=== PATIENT | male | born 1990 | race Caucasian/White ===

== ENCOUNTER 2019-04-24 20:46 | Emergency (ER) | payer OTHER ==
--- NOTE | 2019-04-24 21:35 | PDOC ---
Rapid Medical Evaluation Time Seen by Provider: 04/24/19 21:27 Medical Evaluation: 04/24/19 21:31 pt c/o: cough, wheezing x months, feels as if something is there, seen at [facility] and had cxr done which then he was sent home with prednisone but was not at the pharmacy pt on brief exam: vss, no resp distress pt ordered for: none pt to proceed to proceed to the ED Discharge Disposition - Diagnosis Cough, Eloped from emergency department - Discharge Dispostion Disposition: ELOPED Condition at time of disposition: Unchanged/Unknown - Referrals Referrals: Vanessa Tapia MD [Primary Care Provider] - - Patient Instructions - Post Discharge Activity
[2019-04-24 21:37] VITALS: BP 139/79; PULSE 87; TEMP 98.1; BMI 35.2
== END 2019-04-24 23:00 | disposition left against medical advice (07) ==
LOC: JERFT 20:46
DX: Z53.21 Procedure and treatment not carried out due to patient leaving prior to being seen by health care provider (principal)
CPT/HCPCS: 99281-25

== ENCOUNTER 2019-11-29 10:02 | Day surgery (SDC) | payer OTHER ==
[2019-11-20 12:07] VITALS: BMI 41.5
[2019-11-29] MEDS ORDERED: PROPOFOL 20 ML ONE ×2 (10:36)
[2019-11-29] MEDS ORDERED: LIDOCAINE HCL/PF 2% SDV 5ML VIAL ONE (10:36)
[2019-11-29 12:41] VITALS: TEMP 97.8
[2019-11-29 12:44] VITALS: BP 118/61; PULSE 78
--- NOTE | 2019-11-30 15:03 | PATH ---
Surgical Pathology Report Patient Name: ANTHONY WYNN [facility]. Rec. #: [id number] /Age/Gender: 1990 (Age: 29) / M Account: [id number] Location: [facility] Taken: 11/29/2019 Received: 11/29/2019 Reported: 11/30/2019 Physicians: Anne-Marie Kay M.D. Specimen(s) Received A: SECOND PORTION DUODENUM B: ANTRUM C: GE JUNCTION Clinical History GERD Postoperative diagnosis: Gastritis Final Diagnosis A. SECOND PORTION OF DUODENUM, BIOPSY: DUODENAL MUCOSA WITH NO SIGNIFICANT PATHOLOGIC CHANGE. NO HISTOLOGIC EVIDENCE OF INTRAEPITHELIAL LYMPHOCYTOSIS. B. ANTRUM, BIOPSY: GASTRIC MUCOSA WITH CHRONIC GASTRITIS. IMMUNOSTAIN FOR H. PYLORI IS NEGATIVE. NEGATIVE FOR INTESTINAL METAPLASIA. C. GE JUNCTION, BIOPSY: GASTROESOPHAGEAL JUNCTIONAL MUCOSA WITH REFLUX ESOPHAGITIS. NEGATIVE FOR INTESTINAL METAPLASIA. Electronically Signed Kiesha Alfaro M.D. Gross Description A. Received in formalin, labeled "biopsy second portion of duodenum" is a wiseman, irregular portion of soft tissue measuring 0.3 cm. in greatest dimension. The specimen is submitted in toto in one cassette. B. Received in formalin, labeled "biopsy gastric antrum" is a wiseman, irregular portion of soft tissue measuring 0.5 cm. in greatest dimension. The specimen is submitted in toto in one cassette. C. Received in formalin, labeled "biopsy GE junction" is a wiseman, irregular portion of soft tissue measuring 0.5 cm. in greatest dimension. The specimen is submitted in toto in one cassette. /11/29/2019 saudi/11/29/2019
== END 2019-11-29 12:30 | disposition home or self-care (01) ==
LOC: FASU-ENDO 10:02
PROVIDERS: ATTEND Internal Medicine Gastroenterology
PROC: 0DB68ZX Excision of Stomach, Via Natural or Artificial Opening Endoscopic, Diagnostic (ICD-10-PCS; 2019-11-29)
PROC: 0DB98ZX Excision of Duodenum, Via Natural or Artificial Opening Endoscopic, Diagnostic (ICD-10-PCS; principal; 2019-11-29 11:17)
DX: K29.50 Unspecified chronic gastritis without bleeding (principal); K21.0 Gastro-esophageal reflux disease with esophagitis; K44.9 Diaphragmatic hernia without obstruction or gangrene; R12 Heartburn
CPT/HCPCS: 88305-TC; 88342-TC